=== PATIENT | female | born 1980 | race Caucasian/White ===

== ENCOUNTER 2017-06-27 23:23 | Inpatient (IN) | payer OTHER ==
[~2017-06-27] VITALS: Ht 167.6 cm; Wt 64.4 kg
[2017-06-28] MEDS ORDERED: PREN-546 PO (00:58)
[2017-06-28] MEDS ORDERED: asa (01:01)
[2017-06-28] MEDS ORDERED: FERR-252 PO (01:01)
[2017-06-28 01:13] VITALS: BP 110/71
[2017-06-28] MEDS ORDERED: TERBUTALINE 1 MG/ML VIAL SUBQ ONE (03:08)
[2017-06-28] MEDS: TERBUTALINE 1 MG/ML VIAL SUBQ SCH ×2 (04:57→05:25)
[2017-06-28] MEDS: BETAMETH ACET/BETAMETH NA PH 30 MG/5 ML VIAL IM SCH (08:48)
[2017-06-28] MEDS ORDERED: BETAMETH ACET/BETAMETH NA PH 30 MG/5 ML VIAL IM ONE (08:54)
--- NOTE | 2017-06-28 09:51 | NUR ---
PATIENT HAS BEEN SCREENED AND CATEGORIZED LOW NUTRITION RISK. PATIENT WILL BE SEEN WITHIN 7 DAYS OF ADMISSION. 07/04/[address]
[2017-06-28] MEDS ORDERED: NIFEdipine 10 MG CAPLF PO SCH (16:20)
[2017-06-28] MEDS ORDERED: NIFEdipine 10 MG CAPLF ONE ×4 (16:35→21:38)
[2017-06-28] MEDS: NIFEdipine 10 MG CAPLF PO SCH (21:31)
[2017-06-29] MEDS: NIFEdipine 10 MG CAPLF PO SCH ×3 (01:31→09:19)
[2017-06-29] MEDS ORDERED: NIFEdipine 10 MG CAPLF ONE ×2 (05:33→09:16)
[2017-06-29] MEDS ORDERED: FERROUS SULFATE 325 MG TABEC PO SCH (08:00)
[2017-06-29] MEDS ORDERED: MULTIVIT/MIN/CA/FE/FA 1 TAB PO SCH (09:00)
[2017-06-29] MEDS ORDERED: ECOTRIN 81 MG TABEC PO SCH (09:00)
[2017-06-29] MEDS: BETAMETH ACET/BETAMETH NA PH 30 MG/5 ML VIAL IM SCH (09:14)
[2017-06-29] MEDS ORDERED: BETAMETH ACET/BETAMETH NA PH 30 MG/5 ML VIAL IM ONE (09:15)
--- NOTE | 2017-06-29 12:30 | NUR ---
CM NOTE PER PERSONAL BANKING REPRESENTATIVE CESAR, REVIEWS SHOULD ONLY BE SENT TO [facility]. INITIAL REVIEW FAXED TO [facility] [place] [facility] [phone] DEBBY VILLARREAL PH# [phone].
== END 2017-06-29 10:25 | disposition home or self-care (01) | DRG 778 ==
LOC: MFCC 23:23 → UNDOADMOB 23:23 → INTOOBSV 06-28 18:06 → OBSVTOIN 06-28 18:06 → MFCC 06-29 01:51 → UNDODISIN 06-29 10:25
PROVIDERS: ADMIT Obstetrics & Gynecology; ATTEND Obstetrics & Gynecology
DX: O60.03 Preterm labor without delivery, third trimester (principal); Z3A.33 33 weeks gestation of pregnancy
CPT/HCPCS: 76810; 96372; G0378; J0702; J3105; Q0092